=== PATIENT | male | born 1950 | race Caucasian/White ===

== ENCOUNTER → 2017-04-20 | Outpatient (CLI) | payer BC | END | disposition home or self-care (01) | LOC: NUC 10:41 | DX: R93.422 Abnormal radiologic findings on diagnostic imaging of left kidney (principal) | CPT/HCPCS: 78709; A9562 ==

== ENCOUNTER → 2017-06-06 | Outpatient (CLI) | payer BC | END | disposition home or self-care (01) | LOC: CDC 12:08 | DX: Z01.810 Encounter for preprocedural cardiovascular examination (principal); I45.10 Unspecified right bundle-branch block; I44.4 Left anterior fascicular block | CPT/HCPCS: 93000 ==

== ENCOUNTER 2017-06-13 19:02 | Emergency (ER) | payer BC ==
[~2017-06-13] VITALS: Ht 188 cm; Wt 127.1 kg
[2017-06-13 19:41] LABS: HEMATOCRIT 45.5 % (38.0-50.0); MCH 33.5 PG (29.0-34.0); MCHC 34.3 G/DL (30.0-36.0); MCV 97.6 FL (86-99); MEAN PLAT.VOLUME 9.2 uM^3 (9.0-12.4); PLATELET COUNT 171 K/uL (156-360); RBC DIS.WIDTH-CV 12.5 % (11.8-14.6); RBC DIS.WIDTH-SD 44.5 % (39-53); RED BLOOD COUNT 4.66 M/uL (4.00-5.50); WHITE BLOOD COUNT 10.5 K/uL (4.1-10.2)
[2017-06-13 19:55] LABS: CHLORIDE 105 mEq/L (99-109); POTASSIUM 4.4 mEq/L (3.7-5.4); SODIUM 139 mEq/L (136-147)
[2017-06-13 19:56] LABS: ADD MIUA? YES; BILIRUBIN NEGATIVE; BLOOD LARGE; COLOR YELLOW ((YELLOW)); GLUCOSE (STRIP) NEGATIVE; KETONES NEGATIVE; LEUKOCYTES MODERATE; NITRITE NEGATIVE; PROTEIN (STRIP) 100; SPECIFIC GRAVITY 1.029 (1.000-1.030); UROBILINOGEN 0.2 MG/DL (0.2-1.0)
[2017-06-13 19:57] LABS: GLUCOSE 169 mg/dL (70-99)
[2017-06-13 19:58] LABS: ANION GAP 9 MEQ/L (2-14)
[2017-06-13 20:01] LABS: GFR ESTIMATE (CALCULATED) 50 mL/min/
[2017-06-13 20:02] LABS: BACTERIA NONE SEEN /HPF; EPITHELIAL CELLS NONE SEEN /HPF; MUCUS TRACE /LPF; RED BLOOD CELLS TNTC /HPF (0-5); UCUL ADDED? YES; WHITE BLOOD CELLS 20-30 /HPF (0-5)
[2017-06-13 20:02] LABS: UREA NITROGEN (BUN) 24 mg/dL (9-23)
[2017-06-13] MEDS ORDERED: FLOMAX0.4 MG PO (23:10)
[2017-06-13] MEDS ORDERED: MACROBID100 MG PO (23:11)
[2017-06-13 23:36] VITALS: BP 167/74
[2017-06-14] MEDS ORDERED: METFORMIN HCL500 MG PO (11:34)
[2017-06-14] MEDS ORDERED: GEMFIBROZIL600 MG PO (11:34)
[2017-06-14] MEDS ORDERED: LO-DOSE ASPIRIN81 M1 PO (11:35)
[2017-06-14] MEDS ORDERED: RAPAFLO8 MG PO (11:35)
[2017-06-14] MEDS ORDERED: POTASSIUM CITR15 MEQ PO (11:35)
[2017-06-14] MEDS ORDERED: VITAMIN E400 UNIT PO (11:36)
== END 2017-06-13 23:36 | disposition home or self-care (01) ==
LOC: EME 19:02
DX: N13.2 Hydronephrosis with renal and ureteral calculous obstruction (principal); N40.0 Benign prostatic hyperplasia without lower urinary tract symptoms; K76.0 Fatty (change of) liver, not elsewhere classified; K57.30 Diverticulosis of large intestine without perforation or abscess without bleeding; Z98.890 Other specified postprocedural states; Z87.891 Personal history of nicotine dependence
CPT/HCPCS: 74176; 80048; 81003; 85027; 87086; 99281; 99284; J2270; J2405; J3010; J7030

== ENCOUNTER 2017-06-14 10:41 | Day surgery (SDC) | payer BC ==
[~2017-06-14] VITALS: Ht 188 cm; Wt 119.0 kg
[~2017-06-14 10:41] MED LIST: FLOMAX0.4 MG PO; MACROBID100 MG PO
[2017-06-14] MEDS ORDERED: GEMFIBROZIL600 MG PO (11:34)
[2017-06-14] MEDS ORDERED: METFORMIN HCL500 MG PO (11:34)
[2017-06-14] MEDS ORDERED: POTASSIUM CITR15 MEQ PO (11:35)
[2017-06-14] MEDS ORDERED: LO-DOSE ASPIRIN81 M1 PO (11:35)
[2017-06-14] MEDS ORDERED: RAPAFLO8 MG PO (11:35)
[2017-06-14] MEDS ORDERED: VITAMIN E400 UNIT PO (11:36)
[2017-06-14 11:46] VITALS: BP 183/88
[2017-06-14 12:21] LABS: POINT-OF-CARE METER ID UU14174212; POINT-OF-CARE USER ID AHSRSCSLC11
[2017-06-14 16:25] LABS: POINT-OF-CARE METER ID UU13113675
[2017-06-14 16:40] VITALS: BP 151/70
[2017-06-14 17:58] VITALS: BP 133/70
== END 2017-06-14 18:19 | disposition home or self-care (01) ==
LOC: SDC 10:41
PROVIDERS: Urology
DX: N13.2 Hydronephrosis with renal and ureteral calculous obstruction (principal); I45.10 Unspecified right bundle-branch block; R31.29 Other microscopic hematuria; E11.9 Type 2 diabetes mellitus without complications; I44.4 Left anterior fascicular block; Z87.891 Personal history of nicotine dependence; Z79.84 Long term (current) use of oral hypoglycemic drugs; Z87.442 Personal history of urinary calculi; Z79.82 Long term (current) use of aspirin
CPT/HCPCS: 82365 90; 82948; C1769; C2625; J1170; J1580; J2250; J2405; J3010; J7050

== ENCOUNTER 2017-06-17 15:13 | Emergency (ER) | payer BC ==
[~2017-06-17] VITALS: Ht 188 cm; Wt 123.7 kg
[~2017-06-17 15:13] MED LIST changes: +GEMFIBROZIL600 MG PO; +LO-DOSE ASPIRIN81 M1 PO; +METFORMIN HCL500 MG PO; +POTASSIUM CITR15 MEQ PO; +RAPAFLO8 MG PO; +VITAMIN E400 UNIT PO
[2017-06-17 15:33] LABS: ADD MIUA? YES; BILIRUBIN NEGATIVE; BLOOD LARGE; COLOR AMBER ((YELLOW)); GLUCOSE (STRIP) NEGATIVE; KETONES NEGATIVE; LEUKOCYTES LARGE; NITRITE NEGATIVE; PROTEIN (STRIP) 100; SPECIFIC GRAVITY 1.019 (1.000-1.030); UROBILINOGEN 0.2 MG/DL (0.2-1.0)
[2017-06-17 15:40] LABS: BACTERIA 1+ /HPF; EPITHELIAL CELLS NONE SEEN /HPF; MUCUS 1+ /LPF; RED BLOOD CELLS TNTC /HPF (0-5); UCUL ADDED? YES; WHITE BLOOD CELLS TNTC /HPF (0-5); WHITE BLOOD CELLS CLUMP FEW /HPF (0-5)
[2017-06-17 15:47] LABS: MCH 33.5 PG (29.0-34.0); MCHC 34.4 G/DL (30.0-36.0); MCV 97.2 FL (86-99); MEAN PLAT.VOLUME 9.6 uM^3 (9.0-12.4); RBC DIS.WIDTH-CV 12.3 % (11.8-14.6); RED BLOOD COUNT 4.63 M/uL (4.00-5.50); WHITE BLOOD COUNT 6.5 K/uL (4.1-10.2)
[2017-06-17 15:48] LABS: PLATELET COUNT 225 K/uL (156-360)
[2017-06-17 15:56] LABS: CHLORIDE 105 mEq/L (99-109); POTASSIUM 3.9 mEq/L (3.7-5.4); SODIUM 142 mEq/L (136-147)
[2017-06-17 15:59] LABS: GLUCOSE 144 mg/dL (70-99)
[2017-06-17 16:00] LABS: ANION GAP 15 MEQ/L (2-14)
[2017-06-17 16:01] LABS: TOTAL BILIRUBIN 0.4 mg/dL (0.0-1.0)
[2017-06-17 16:02] LABS: ALKALINE PHOSPHATASE 65 IU/L (3-129)
[2017-06-17 16:03] LABS: GFR ESTIMATE (CALCULATED) > 59 mL/min/
[2017-06-17 16:04] LABS: DIRECT BILIRUBIN 0.2 mg/dL (0.0-0.3); UREA NITROGEN (BUN) 18 mg/dL (9-23)
[2017-06-17 16:06] LABS: LIPASE 19 U/L (1.0-51.0)
[2017-06-17] MEDS ORDERED: MOTRIN600 MG PO (17:26)
[2017-06-17] MEDS ORDERED: PERCOCET 5/31 TABLET PO (17:26)
[2017-06-17] MEDS ORDERED: ZOFRAN4 MG PO (17:26)
[2017-06-17 18:24] VITALS: BP 150/78
== END 2017-06-17 18:27 | disposition home or self-care (01) ==
LOC: EME 15:13
DX: N23 Unspecified renal colic (principal); Z87.442 Personal history of urinary calculi; F32.9 Major depressive disorder, single episode, unspecified; F41.9 Anxiety disorder, unspecified; Z86.718 Personal history of other venous thrombosis and embolism; Z79.82 Long term (current) use of aspirin; Z91.040 Latex allergy status; Z88.8 Allergy status to other drugs, medicaments and biological substances; Z87.891 Personal history of nicotine dependence
CPT/HCPCS: 80048; 80076; 81003; 83690; 85027; 87086; 99281; 99284; J1885; J3010; J7040

== ENCOUNTER 2017-11-24 14:25 | Observation (INO) | payer BC ==
[~2017-11-24] VITALS: Ht 188 cm; Wt 119.0 kg
[~2017-11-24 14:25] MED LIST changes: +MOTRIN600 MG PO; +PERCOCET 5/31 TABLET PO; +POTASSIUM CITR10 MEQ PO; -POTASSIUM CITR15 MEQ PO; +ZOFRAN4 MG PO
[2017-11-24 15:11] LABS: ALBUMIN 4.6 g/dL (3.2-4.8); CHLORIDE 104 mEq/L (99-109); POTASSIUM 4.1 mEq/L (3.7-5.4); SODIUM 141 mEq/L (136-147)
[2017-11-24 15:13] LABS: BASOPHIL (%) 0.3 % (0-1); EOSINOPHIL (%) 0.2 % (0-5); HEMATOCRIT 49.9 % (38.0-50.0); HEMOGLOBIN 17.7 G/DL (12.5-16.6); IMMATURE GRANULOCYTE (%) 0.8 % (0.0-0.7); LYMPHOCYTE (%) 12.9 % (15-42); LYMPHOCYTE COUNT 1.4 K/uL (1.0-2.8); MCH 33.7 PG (29.0-34.0); MCHC 35.5 G/DL (30.0-36.0); MONOCYTE (%) 5.6 % (3-12); MONOCYTE COUNT 0.6 K/uL (0-0.8); NEUTROPHIL (%) 80.2 % (45-76); NEUTROPHIL COUNT 8.6 K/uL (1.8-6.4); PLATELET COUNT 228 K/uL (156-360); RBC DIS.WIDTH-CV 11.8 % (11.8-14.6); RED BLOOD COUNT 5.25 M/uL (4.00-5.50); WHITE BLOOD COUNT 10.7 K/uL (4.1-10.2)
[2017-11-24 15:14] LABS: GLUCOSE 254 mg/dL (70-99); TOTAL PROTEIN 7.4 g/dL (6.4-8.3)
[2017-11-24 15:15] LABS: TOTAL BILIRUBIN 0.6 mg/dL (0.0-1.0)
[2017-11-24 15:17] LABS: ALKALINE PHOSPHATASE 75 IU/L (3-129); GFR ESTIMATE (CALCULATED) > 59 mL/min/ (58.99-99999)
[2017-11-24 15:18] LABS: UREA NITROGEN (BUN) 32 mg/dL (9-23)
[2017-11-24 15:19] LABS: AST (GOT) 21 IU/L (2-34)
[2017-11-24 15:20] LABS: ALT (GPT) 26 IU/L (3-49)
[2017-11-24 16:34] LABS: APPEARANCE CLEAR ((CLEAR)); BILIRUBIN NEGATIVE; BLOOD MODERATE; COLOR YELLOW ((YELLOW)); GLUCOSE (STRIP) 50; KETONES 5; LEUKOCYTES NEGATIVE; NITRITE NEGATIVE; PROTEIN (STRIP) 100; SPECIFIC GRAVITY 1.019 (1.000-1.030); UROBILINOGEN 0.2 MG/DL (0.2-1.0)
[2017-11-24 16:41] LABS: BACTERIA NONE SEEN /HPF; CALCIUM OXALATE CRYSTALS 1+ /HPF; EPITHELIAL CELLS RARE /HPF; MUCUS TRACE /LPF; RED BLOOD CELLS 0-5 /HPF (0-5); UCUL ADDED? NO; URIC ACID CRYSTALS 1+ /HPF; WHITE BLOOD CELLS 0-5 /HPF (0-5)
[2017-11-24] MEDS ORDERED: LODINE500 MG PO (17:15)
[2017-11-24] MEDS ORDERED: MEDROL4 MG PO (17:15)
[2017-11-24] MEDS ORDERED: HYDROCHLOROTHIA25 MG PO (17:15)
[2017-11-24 20:16] VITALS: BP 174/85
[2017-11-24 23:43] VITALS: BP 143/86
[2017-11-25 06:28] LABS: CHLORIDE 105 MEQ/L (99-109); CREATININE 1.2 MG/DL (0.6-1.3); GFR ESTIMATE (CALCULATED) > 59 mL/min/ (58.99-99999); GLUCOSE 188 mg/dL (70-99); POTASSIUM 3.9 MEQ/L (3.7-5.4); SODIUM 141 MEQ/L (136-147); UREA NITROGEN (BUN) 29 mg/dL (9-23)
[2017-11-25 06:33] LABS: HEMATOCRIT 44.8 % (38.0-50.0); HEMOGLOBIN 15.2 G/DL (12.5-16.6); MCHC 33.9 G/DL (30.0-36.0); MCV 97.2 FL (86-99); PLATELET COUNT 191 K/uL (156-360); RBC DIS.WIDTH-CV 12.2 % (11.8-14.6); RBC DIS.WIDTH-SD 43.8 % (39-53); RED BLOOD COUNT 4.61 M/uL (4.00-5.50); WHITE BLOOD COUNT 8.7 K/uL (4.1-10.2)
[2017-11-25 12:13] VITALS: BP 139/82
[2017-11-25 16:38] VITALS: BP 141/76
[2017-11-25 20:00] VITALS: BP 118/70
[2017-11-26 00:50] VITALS: BP 123/67
[2017-11-26 04:03] VITALS: BP 117/66
[2017-11-26 06:07] LABS: BASOPHIL (%) 0.2 % (0-1); EOSINOPHIL (%) 0.8 % (0-5); EOSINOPHIL COUNT 0.1 K/uL (0-0.3); HEMATOCRIT 42.4 % (38.0-50.0); HEMOGLOBIN 14.2 G/DL (12.5-16.6); IMMATURE GRANULOCYTE (%) 0.3 % (0.0-0.7); LYMPHOCYTE (%) 22.2 % (15-42); MCH 32.6 PG (29.0-34.0); MCHC 33.5 G/DL (30.0-36.0); MCV 97.5 FL (86-99); MONOCYTE (%) 8.9 % (3-12); MONOCYTE COUNT 0.8 K/uL (0-0.8); NEUTROPHIL (%) 67.6 % (45-76); PLATELET COUNT 191 K/uL (156-360); RBC DIS.WIDTH-CV 11.9 % (11.8-14.6); RED BLOOD COUNT 4.35 M/uL (4.00-5.50); WHITE BLOOD COUNT 8.9 K/uL (4.1-10.2)
[2017-11-26 06:39] LABS: CHLORIDE 107 MEQ/L (99-109); GFR ESTIMATE (CALCULATED) > 59 mL/min/ (58.99-99999); GLUCOSE 194 mg/dL (70-99); SODIUM 140 MEQ/L (136-147); UREA NITROGEN (BUN) 23 mg/dL (9-23)
[2017-11-26 09:43] VITALS: BP 139/69
[2017-11-26] MEDS ORDERED: KEFLEX500 MG PO (12:18)
== END 2017-11-26 12:38 | disposition home or self-care (01) ==
LOC: EME 14:25 → EDOF 16:55 → 5WEST 16:55 → ENRESERV 16:58 → EDOF 17:31 → ENRESERV 18:27 → 5WEST 20:04 → ENPENDDIS 11-26 12:38 → 5WEST 11-26 12:38
PROVIDERS: Emergency Medicine; Hospitalist; Internal Medicine; Urology
DX: N13.2 Hydronephrosis with renal and ureteral calculous obstruction (principal); N40.0 Benign prostatic hyperplasia without lower urinary tract symptoms; I10 Essential (primary) hypertension; E11.9 Type 2 diabetes mellitus without complications; Z87.442 Personal history of urinary calculi; Z79.84 Long term (current) use of oral hypoglycemic drugs; Z91.013 Allergy to seafood; Z91.048 Other nonmedicinal substance allergy status; Z91.040 Latex allergy status; Z91.010 Allergy to peanuts; Z88.1 Allergy status to other antibiotic agents; Z88.2 Allergy status to sulfonamides
CPT/HCPCS: 74018; 74176; 76000; 80048; 80053; 81003; 82365 90; 82948; 85025; 85027; 99281; 99285; C2625; G0378; J0131; J0690; J1100; J1644; J1885; J2250; J2270; J2405; J7030

== ENCOUNTER 2018-01-24 10:47 | Day surgery (SDC) | payer BC ==
[~2018-01-24] VITALS: Ht 188 cm; Wt 118.9 kg
[~2018-01-24 10:47] MED LIST changes: +HYDROCHLOROTHIA25 MG PO; +KEFLEX500 MG PO; +LODINE500 MG PO; +MEDROL4 MG PO
[2018-01-24] MEDS ORDERED: NITROFURANTOIN100 MG PO (11:32)
[2018-01-24 11:46] VITALS: BP 163/88
[2018-01-24 17:30] VITALS: BP 175/91
[2018-01-24 18:15] VITALS: BP 144/77
== END 2018-01-24 18:35 | disposition home or self-care (01) ==
LOC: SDC 10:47
PROVIDERS: Urology
PROC: 0T778DZ Dilation of Left Ureter with Intraluminal Device, Via Natural or Artificial Opening Endoscopic (ICD-10-PCS; principal; 2018-01-24)
PROC: 0TF48ZZ Fragmentation in Left Kidney Pelvis, Via Natural or Artificial Opening Endoscopic (ICD-10-PCS; principal; 2018-01-24)
DX: N20.0 Calculus of kidney (principal); E78.5 Hyperlipidemia, unspecified; E11.9 Type 2 diabetes mellitus without complications; Z86.718 Personal history of other venous thrombosis and embolism; Z87.891 Personal history of nicotine dependence; Z79.84 Long term (current) use of oral hypoglycemic drugs; Z88.2 Allergy status to sulfonamides
CPT/HCPCS: 82948; 93005; C1894; C2625; J0690; J1100; J1170; J1580; J1885; J2250; J2405; J3010; J7643

== ENCOUNTER 2018-01-26 17:30 | Inpatient (IN) | payer OTHER, BC ==
[~2018-01-26] VITALS: Ht 188 cm; Wt 118.8 kg
[~2018-01-26 17:30] MED LIST changes: +NITROFURANTOIN100 MG PO
[2018-01-26 18:50] LABS: HEMATOCRIT 43.9 % (38.0-50.0); HEMOGLOBIN 15.8 G/DL (12.5-16.6); MCH 34.3 PG (29.0-34.0); MCV 95.4 FL (86-99); PLATELET COUNT 205 K/uL (156-360); RBC DIS.WIDTH-CV 12.2 % (11.8-14.6); RBC DIS.WIDTH-SD 42.2 % (39-53); WHITE BLOOD COUNT 10.9 K/uL (4.1-10.2)
[2018-01-26 19:05] LABS: CHLORIDE 102 mEq/L (99-109); POTASSIUM 4.5 mEq/L (3.7-5.4); SODIUM 138 mEq/L (136-147)
[2018-01-26 19:07] LABS: GLUCOSE 349 mg/dL (70-99)
[2018-01-26 19:10] LABS: CREATININE 1.1 mg/dL (0.6-1.3); GFR ESTIMATE (CALCULATED) > 59 mL/min/ (58.99-99999)
[2018-01-26 19:11] LABS: UREA NITROGEN (BUN) 28 mg/dL (9-23)
[2018-01-26 19:43] LABS: APPEARANCE TURBID ((CLEAR)); BILIRUBIN NEGATIVE; BLOOD LARGE; COLOR RED ((YELLOW)); GLUCOSE (STRIP) >=500; KETONES NEGATIVE; LEUKOCYTES NEGATIVE; NITRITE NEGATIVE; PROTEIN (STRIP) 100; SPECIFIC GRAVITY 1.021 (1.000-1.030); UROBILINOGEN 0.2 MG/DL (0.2-1.0)
[2018-01-26 19:46] LABS: WHITE BLOOD CELLS 30-40 /HPF (0-5)
[2018-01-26 19:47] LABS: BACTERIA RARE /HPF; MUCUS NONE SEEN /LPF
[2018-01-26 19:48] LABS: AMORPHOUS URATES CRYSTALS 3+; CALCIUM OXALATE CRYSTALS 1+ /HPF; EPITHELIAL CELLS 1+ /HPF
[2018-01-26] MEDS ORDERED: MACROBID100 MG PO (22:05)
[2018-01-26] MEDS ORDERED: ZOFRAN ODT8 MG PO (22:06)
[2018-01-27 01:21] VITALS: BP 154/81
[2018-01-27 04:08] VITALS: BP 133/74
[2018-01-27 05:02] LABS: BASOPHIL (%) 0.5 % (0-1); EOSINOPHIL COUNT 0.1 K/uL (0-0.3); HEMATOCRIT 37.9 % (38.0-50.0); HEMOGLOBIN 13.6 G/DL (12.5-16.6); IMMATURE GRANULOCYTE (%) 0.3 % (0.0-0.7); LYMPHOCYTE (%) 32.8 % (15-42); LYMPHOCYTE COUNT 2.2 K/uL (1.0-2.8); MCH 34.3 PG (29.0-34.0); MCHC 35.9 G/DL (30.0-36.0); MCV 95.7 FL (86-99); MONOCYTE COUNT 0.8 K/uL (0-0.8); NEUTROPHIL (%) 52.4 % (45-76); NEUTROPHIL COUNT 3.4 K/uL (1.8-6.4); PLATELET COUNT 186 K/uL (156-360); RBC DIS.WIDTH-CV 12.1 % (11.8-14.6); RBC DIS.WIDTH-SD 42.1 % (39-53); RED BLOOD COUNT 3.96 M/uL (4.00-5.50); WHITE BLOOD COUNT 6.6 K/uL (4.1-10.2)
[2018-01-27 05:09] LABS: CHLORIDE 106 mEq/L (99-109); POTASSIUM 4.1 mEq/L (3.7-5.4); SODIUM 140 mEq/L (136-147)
[2018-01-27 05:10] LABS: GLUCOSE 248 mg/dL (70-99)
[2018-01-27 05:14] LABS: CREATININE 0.8 mg/dL (0.6-1.3); GFR ESTIMATE (CALCULATED) > 59 mL/min/ (58.99-99999)
[2018-01-27 05:15] LABS: UREA NITROGEN (BUN) 22 mg/dL (9-23)
[2018-01-27 07:00] VITALS: BP 161/83
[2018-01-27 11:35] VITALS: BP 132/72
[2018-01-27 15:48] VITALS: BP 138/78
[2018-01-27 20:00] VITALS: BP 165/85
[2018-01-28] VITALS: BP 154/78
[2018-01-28 07:20] VITALS: BP 172/88
[2018-01-28 19:30] VITALS: BP 172/81
[2018-01-28 23:25] VITALS: BP 157/81
[2018-01-29 08:25] VITALS: BP 163/86
[2018-01-29 12:20] VITALS: BP 130/70
[2018-01-29 18:50] VITALS: BP 141/76
[2018-01-30 00:28] VITALS: BP 195/95
[2018-01-30 03:51] VITALS: BP 172/77
[2018-01-30 08:51] VITALS: BP 156/77
[2018-01-30 11:50] VITALS: BP 140/77
== END 2018-01-30 15:47 | disposition home or self-care (01) | DRG 694 ==
LOC: EME 17:30 → EDOF 23:28 → 4SOUTH 23:28 → ENRESERV 23:30 → 4SOUTH 01-27 00:41
PROVIDERS: Emergency Medicine; Hospitalist
DX: N13.2 Hydronephrosis with renal and ureteral calculous obstruction (principal); R31.0 Gross hematuria; E11.9 Type 2 diabetes mellitus without complications; I10 Essential (primary) hypertension; I25.10 Atherosclerotic heart disease of native coronary artery without angina pectoris; F32.9 Major depressive disorder, single episode, unspecified; F41.9 Anxiety disorder, unspecified; K59.00 Constipation, unspecified; E66.9 Obesity, unspecified; Z86.718 Personal history of other venous thrombosis and embolism; Z79.82 Long term (current) use of aspirin; Z91.040 Latex allergy status; Z88.2 Allergy status to sulfonamides; Z88.1 Allergy status to other antibiotic agents; Z87.891 Personal history of nicotine dependence; I25.2 Old myocardial infarction; Z68.33 Body mass index [BMI] 33.0-33.9, adult
CPT/HCPCS: 74176; 80048; 81003; 82948; 85025; 85027; 93005; 99281; 99285; C1894; C2625; G0378; J0330; J0690; J0696; J1100; J1170; J1580; J1815; J1885; J2250; J2405; J3010; J7030; J7643